=== PATIENT | female | born 1985 | race Caucasian/White ===

== ENCOUNTER → 2016-10-31 | Outpatient (CLI) | payer OTHER ==
--- NOTE | 2016-10-31 11:51 | US ---
October 31, [address] Mckeon, Thank you for requesting consultation and a ultrasound to evaluate the anatomy for your patient, Mrs. Mccarthy. As you know, Chayito is a 31 year old G 2, P 1001 with a shaikh preg kena dating 20 w 0 d; DONI of 03/20/17 by prior ultrasound. Aneuploidy screening was performed. She had reassuring NIPT results. ULTRASOUND Number of fetuses: 1 Placental location: Anterior; no evidence of previa Placental cord insertion: Intraplacental presentation: Breech Cervix: 4.4 cm viewed transabdominally Maximum Vertical Pocket: 4.7 cm The adnexa were evaluated. No pathology was seen. Right ovary is visualized and seen as normal. It measures 2.3 x 1.0 x 2.8 cm. Left ovary is visualized and seen as normal. It measures 2.1 x 1.7 x 2.9 cm. MEASUREMENTS: Biparietal diameter: 47 mm 20 weeks, 1 days Head circumference: 176 mm 20 weeks, 1 days Abdominal circumference: 153 mm 20 weeks, 4 days Femur length: 32 mm 20 weeks, 1 days Humerus length: 32 mm 20 weeks, 4 days Transcerebellar diameter: 21 mm 19 weeks, 6 days Average ultrasound age: 20 weeks, 2 days Estimated weight: 342 gm weight percentile: 60% ANATOMY Supratentorial brain: Normal including views of the falx, cavum septum pellucidum and choroids Lateral Ventricle: Normal, measuring 4.3 mm Posterior fossa: Normal including the cerebellum and cisterna magna Spine: Normal Nuchal fold: 4.0 mm normal Face: Normal views of the lip and nose area Profile: Normal Palate: Normal appearance of the alveolar ridge Heart: Four Chamber View: Normal including the intraventricular Septum LVOT: Normal RVOT: Normal 3VV: Normal Tracheal View: Normal Aortic Arch: Seen Ductal Arch: Seen SVC/IVC: Seen Heart Rate 139 bpm Diaphragm: Normal appearance without overt abnormality detected Stomach: Normal Umbilical cord insertion: Normal Right kidney: Normal Left kidney: Normal Bladder: Normal Number of cord vessels: Three Upper extremities: Normal Lower extremities: Normal Gender: Undisclosed; "Normal" IMPRESSION: 1. Intrauterine at 20 w 0 d, ultrasound is consistent with her established DONI of 03/20/17 . 2. Normal anatomical survey. 3. Cervical length is normal at 4.4 cm without evidence of insufficiency. RECOMMENDATIONS: I was pleased to review today's ultrasound with your patient and her spouse. I reassured them that t he baby is growing appropriately with normal amniotic fluid volume. Our detailed review of the anatomy did not reveal any overt abnormalities. Future ultrasound and consultation is left to your clinical discretion. Future follow up is left to your clinical discretion. Thank you for allowing us the opportunity to evaluate your patient. Should you have any further ques tions or concerns please do not hesitate to contact me. Low risk; no E&M. Agnieszka Booker MD [facility] Maternal Medicine Diagnosis Department of Obstetrics & Gynecology [facility]
--- NOTE | 2016-10-31 19:40 | US ---
Complete Detailed Obstetrical Sonography Clinical History: 31-year-old female presenting for anatomic survey and biometry. Technique: A curvilinear 5 MHz transducer was used to sonographically evaluate the fetus and the plac enta. M-mode Doppler was used. Dr. Agnieszka Booker was present. Comparison Study: First trimester obstetrical sonography, dated September 08, 2016. LMP: June 13, 2016, indicating an age of 20 weeks 0 days, and an estimated date of delivery of J une 2016. Findings: Again, there is a single viable intrauterine gestation, which is currently breech in prese ntation. The placenta is anteriorly-situated, with no evidence of previa. The maternal cervical lengt h is 4.4 cm, measured transabdominally. There is a three-vessel cord with a normal intraplacental cor d insertion. The amniotic fluid volume is appropriate with a maximal vertical pocket of 4.7 cm. The f etal heart rate is 139 bpm. The maternal ovaries are identified, and appear normal, with the right ov milena measuring 2.3 x 1.0 x 2.8 cm, and the maternal left ovary measuring 2.1 x 1.7 x 2.9 cm. The anatomic survey reveals a normal appearance to the supra- and infratentorial structures. Th e lateral ventricular diameter is 4.3 mm, and the nuchal fold is 4.0 mm. The spine is evaluated in sa gittal and transverse planes, and appears normal. The nasolabial labial anatomy, sagittal facia l profile, and the alveolar ridge appear normal. There is a 4-chambered heart with interventricular s eptum, right and left ventricular outflow tracts, three-vessel tracheal view, aortic and ductal arch and inflow tracts. The diaphragm is intact. The stomach, right and left kidneys, urinary bladder, and the upper and lower extremities are identified. biometry is as follows: The biparietal diameter is 47 mm, corresponding to an age of 20 weeks 1 day +/- 1 week 6 days, which is at the 54th percentile. The head circumference is 176 mm, corresponding to an age of 20 weeks 1 day +/- 1 week 4 days, which is at the 47th percentile. The abdominal circumference is 152 mm, corresponding to an age of 20 weeks 4 days +/- 2 weeks 1 day, which is at the 60th percentile. The femur length is 32 mm, corresponding to an age of 20 weeks 1 day +/- 1 week 6 days, which is at t he 44th percentile. The humeral length is 32 mm, corresponding to an age of 20 weeks 4 days, and the transcerebellar diam eter is 21 mm corresponding to an age of 19 weeks 6 days +/- 1 week 0 days. The composite gestational age based upon the above parameters is 20 weeks 2 days. The estimated weight is 342 grams +/- 50 grams, which is 12 ounces +/- 2 ounces, which is at e 60th percentile. The head circumference to abdominal circumference ratio is normal, measuring 1.16. The femur length t o biparietal diameter ratio is 69%, and the femur length to abdominal circumference ratio is 21%. Impression: There is a single viable intrauterine gestation with no overt structural anomaly hernandez ving biometry concordant with menstrual dating and demonstrating appropriate interval growth since 2015. Please also refer to Dr. Booker's separate assessments and specific recommendations for follow up.
== END ==
LOC: FIMAGING 10:38
PROVIDERS: ATTEND Obstetrics & Gynecology
DX: Z34.92 Encounter for supervision of normal pregnancy, unspecified, second trimester (principal); Z3A.20 20 weeks gestation of pregnancy

== ENCOUNTER → 2017-01-11 | Outpatient (CLI) | payer OTHER | LOC: FIMAGING 08:25 | PROVIDERS: ATTEND Obstetrics & Gynecology | DX: O99.89 Other specified diseases and conditions complicating pregnancy, childbirth and the puerperium (principal); R10.9 Unspecified abdominal pain; S39.011A Strain of muscle, fascia and tendon of abdomen, initial encounter; S76.211A Strain of adductor muscle, fascia and tendon of right thigh, initial encounter; M53.3 Sacrococcygeal disorders, not elsewhere classified; Z3A.30 30 weeks gestation of pregnancy ==

== ENCOUNTER → 2017-01-24 | Outpatient (CLI) | payer OTHER | LOC: FIMAGING 14:23 | PROVIDERS: ATTEND Obstetrics & Gynecology | DX: Z36 Encounter for antenatal screening of mother (principal); Z3A.32 32 weeks gestation of pregnancy; O99.89 Other specified diseases and conditions complicating pregnancy, childbirth and the puerperium; M86.18 Other acute osteomyelitis, other site; S39.011A Strain of muscle, fascia and tendon of abdomen, initial encounter ==

== ENCOUNTER → 2017-02-16 | Outpatient (CLI) | payer OTHER | LOC: FIMAGING 08:45 | PROVIDERS: ATTEND Obstetrics & Gynecology | DX: Z34.03 Encounter for supervision of normal first pregnancy, third trimester (principal); Z3A.35 35 weeks gestation of pregnancy ==

== ENCOUNTER → 2017-03-02 | Outpatient (CLI) | payer OTHER | LOC: FIMAGING 14:34 | PROVIDERS: ATTEND Obstetrics & Gynecology | DX: Z34.83 Encounter for supervision of other normal pregnancy, third trimester (principal); Z3A.37 37 weeks gestation of pregnancy ==

== ENCOUNTER 2017-03-13 17:00 | Inpatient (IN) | payer OTHER ==
[2017-03-13] MEDS ORDERED: OLIVE OIL 118 ML BTL MISC PRN (21:24)
[2017-03-13] MEDS ORDERED: LR 1,000 ML IV PRN (21:24)
[2017-03-13] MEDS ORDERED: TERBUTALINE SULFATE 1 MG/ML VIAL IV PRN (21:24)
[2017-03-13] MEDS ORDERED: EPSOM SALT 454 GM TP PRN (21:24)
[2017-03-13] MEDS ORDERED: OXYTOCIN/RINGERS LACTATE 1,000 ML IV PRN (21:24)
[2017-03-13] MEDS ORDERED: CALCIUM CARBONATE 500 MG CHEWABLE TAB PO PRN (21:30)
[2017-03-13] MEDS ORDERED: diphenhydrAMINE 25 MG CAP PO PRN (21:30)
[2017-03-13] MEDS ORDERED: ACETAMINOPHEN 325 MG TAB PO PRN (21:31)
[2017-03-13 21:40] LABS: % IMMATURE GRANULYOCYTES 0.4 % (0.0-1.1); ABSOLUTE IMMATURE GRANULOCYTES 0.03 10^3/uL (0.00-0.10); ADD DIFF? NO; ADD MORPH? NO; ADD SCAN? NO; ATYPICAL LYMPHOCYTE FLAG 0 (0-99); FRAGMENT RBC FLAG 0 (0-99); HEMATOCRIT 36.5 % (38.0-47.0); HEMOGLOBIN 12.8 g/dL (12.6-16.3); LEFT SHIFT FLG 0 (0-99); LIPEMIA HEMOLYSIS FLAG 90 (0-99); MEAN CELL HEMOGLOBIN 32.6 pg (27.9-34.1); MEAN CELL HEMOGLOBIN CONCENTR. 35.1 g/dL (32.4-36.7); MEAN CELL VOLUME 92.9 fL (81.5-99.8); PLATELET CLUMPS FLAG 20 (0-99); PLATELET COUNT 198 10^3/uL (150-400); RED BLOOD CELL COUNT 3.93 10^6/uL (4.18-5.33); RED CELL DISTRIBUTION WIDTH 12.9 % (11.5-15.2)
[2017-03-14] MEDS ORDERED: LIDOCAINE 1% 300 MG/30 ML SDV ONE (04:48)
[2017-03-14] MEDS ORDERED: AMMONIA AROMATIC 1 EACH AMP IH ONE (04:49)
[2017-03-14] MEDS ORDERED: MISOPROSTOL 200 MCG TAB ONE (04:49)
[2017-03-14] MEDS ORDERED: OLIVE OIL 118 ML BTL ONE (04:49)
[2017-03-14] MEDS ORDERED: OXYTOCIN 10 UNIT/ML VIAL ONE (04:49)
[2017-03-14] MEDS ORDERED: TERBUTALINE SULFATE 1 MG/ML VIAL ONE (04:49)
[2017-03-14] MEDS ORDERED: OXYTOCIN/LR *STANDARD DOSE PROTOCOL IV SCH (05:00)
--- NOTE | 2017-03-14 07:58 | OBPROG ---
OBG Labor Progress Note Assessment/Plan: Assessment: 31 y/o at 39+1 weeks EGA admitted for IOL for severe pelvic floor pain - Plan: 1) status reassuring 2) Labor: Desire AROM after CAS placed, will continue pitocin, and anesthesia will place CAS after he finishes a surgery 3) Pain: Consulting anesthesia for CAS 4) GBS neg 03/14/17 07:57 Subjective: No complaints, eventually wants CAS, ctx not too painful now. [place] bulb out last night. Objective: 03/13/17 21:00 Patient ABO/Rh B POSITIVE 03/13/17 21:00 - SVE Dilation (cm): 4 Effacement (%): 50 Station: -2 Wallace Current Contraction Pattern: Irregular FHR (bpm): 125 FHR Pattern Variability: Moderate FHR Category: 1 Oxytocin Orders Assessment - Pre-Induction/Augmentation Assessment Gestational Age: 39 week(s) and 0 day(s) ICD10 Worksheet Patient Problems: Problems Problem Status Onset Labor established Acute
[2017-03-14] MEDS ORDERED: fentaNYL 2MCG/ML/BUP 0.1% RTU 100 ML BAG EP ONE (08:55)
[2017-03-14] MEDS ORDERED: PHENYLEPHRINE HCL 100 MCG/ML SYR ONE (08:55)
[2017-03-14] MEDS ORDERED: BUPIVACAINE 0.25% 30 ML SDV ONE (08:55)
[2017-03-14] MEDS ORDERED: fentaNYL 100 MCG/2 ML INJ ONE (08:56)
--- NOTE | 2017-03-14 10:22 | PREANESOB ---
Obstetric Pre-Anesthesia Info - General Info Proposed Procedure: Labor and delivery with pitocin. : 2 Para: 1 WBD: 39 - Info Status: Full Term Monitors: External FHR Baseline (bpm): 125 FHR Pattern: Reassuring - Labor Status Cervical Dilation per last OB SVE: 4 Station per last OB SVE: -2 Pitocin: In Use Indications for Labor Analgesia: Induction of Labor, Pain Control Labor Epidural: Proposed Anesthesia ROS: Prior labor epidural and surgery with general anesthesia. Very mild asthma. Allergies/Adverse Reactions: Allergy/AdvReac Type Severity Reaction Status Date / Time No Known Allergies Allergy Unverified 10/16/15 18:38 Home Medications: Medication Instructions Recorded Hydrocodone/APAP 5/325 [[place] 1 - 2 tab PO Q4 PRN #30 tab 10/19/15 5/325 (*)] Ibuprofen [Motrin (*)] 600 mg PO Q6 PRN #30 tab 10/19/15 Visit Medications: Generic Name Dose Route Start Last Admin Trade Name Freq PRN Reason Stop Dose Admin Acetaminophen 650 mg 03/13/17 21:31 Tylenol PO 09/09/17 21:30 Q4 PRN Pain, Mild/Fever, Can Take PO Calcium Carbonate 1,000 mg 03/13/17 21:30 Tums PO 09/09/17 21:29 Q4 PRN HEARTBURN Diphenhydramine HCl 25 mg 03/13/17 21:30 03/13/17 22:01 Benadryl PO 09/09/17 21:29 25 mg HS PRN Administration INSOMNIA Lactated Ringer's 1,000 mls @ 0 mls/hr 03/13/17 21:24 03/14/17 05:15 Lr IV 09/09/17 21:23 1,000 mls PRN PRN Administration SEE PROTOCOL CONDITIONS Protocol Per Protocol Oxytocin/Lactated Ringer's 1,000 mls @ 150 mls/hr 03/13/17 21:24 Pitocin 20 Units/Lr (Premix) IV PRN PRN Post- bleeding Oxytocin/Lactated Ringer's 500 mls @ 0 mls/hr 03/14/17 05:00 03/14/17 05:20 Pitocin 30 Units/Lr (Premix) IV 09/10/17 04:59 500 mls CONT KATHYA Administration Protocol Per Protocol Ibuprofen 600 mg 03/13/17 21:24 Motrin PO 09/09/17 21:23 Q6HRS PRN post , inflammation Magnesium Sulfate 454 gm 03/13/17 21:24 Epsom Salt TP 09/09/17 21:23 PRN PRN perineal discomfort [place] Oil 118 ml 03/13/17 21:24 Sweet Oil MISC 09/09/17 21:23 ONCE PRN preneal massage Terbutaline Sulfate 0.25 mg 03/13/17 21:24 Brethine IV 09/09/17 21:23 ONCE PRN Tachysystole Discontinued Medications Generic Name Dose Route Start Last Admin Trade Name Freq PRN Reason Stop Dose Admin Ammonia (Aromatic Spirit) Confirm 03/14/17 04:49 Ammonia Aromatic Administered 03/14/17 04:50 Dose 1 each IH .STK-MED ONE Bupivacaine HCl Confirm 03/14/17 08:55 Sensorcaine 0.25% Sdv Administered 03/14/17 08:56 Dose 30 ml .ROUTE .STK-MED ONE Fentanyl Confirm 03/14/17 08:56 Sublimaze Administered 03/14/17 08:57 Dose 100 mcg .ROUTE .STK-MED ONE Fentanyl/Bupivacaine HCl Confirm 03/14/17 08:55 Fentanyl/Bupivacaine/Ns 2 Mcg/Ml 0.1% (Premix Administered 03/14/17 08:56 Dose 100 ml EP .STK-MED ONE Lidocaine HCl Confirm 03/14/17 04:48 Lidocaine Hcl 1% Administered 03/14/17 04:49 Dose 300 mg .ROUTE .STK-MED ONE Misoprostol Confirm 03/14/17 04:49 Cytotec Administered 03/14/17 04:50 Dose 1,000 mcg .ROUTE .STK-MED ONE [place] Oil Confirm 03/14/17 04:49 Sweet Oil Administered 03/14/17 04:50 Dose 118 ml .ROUTE .STK-MED ONE Oxytocin Confirm 03/14/17 04:49 Pitocin Administered 03/14/17 04:50 Dose 40 unit .ROUTE .STK-MED ONE Phenylephrine HCl Confirm 03/14/17 08:55 Neosynephrine Administered 03/14/17 08:56 Dose 1,000 mcg .ROUTE .STK-MED ONE Terbutaline Sulfate Confirm 03/14/17 04:49 Brethine Administered 03/14/17 04:50 Dose 1 mg .ROUTE .STK-MED ONE - Anesthesia History Response to Local Anesthetics: Normal Anesthesia & Operative History: No Prior Problems Family Anesthesia History: Negative - Social History Substance Use/Abuse: Denies - Focused Exam Blood Pressure: 109/61 Heart Rate: 73 Height/Weight (Nursing): Height 165.1 cm Weight 68.039 kg Physical Exam: Within normal limits. No wheezes. ASA Status: II Labs: 03/13/17 21:00 Patient ABO/Rh B POSITIVE 03/13/17 21:00 - Plan Anesthetic Plan: CSE Consent Signed and on Chart: Yes Patient/Guardian Understands and Agrees to Plan: Yes
[2017-03-14] MEDS ORDERED: PHENYLEPHRINE HCL 100 MCG/ML SYR IVP PRN (10:24)
[2017-03-14] MEDS ORDERED: ONDANSETRON 4 MG/2 ML VIAL IVP PRN (10:24)
--- NOTE | 2017-03-14 10:26 | POSTANESTH ---
Post Anesthetic Evaluation Cardiovascular Status: Normal, Stable Respiratory Status: Normal, Stable, Similar to Pre-op Cond. Level of Consciousness/Mental Status: Can Participate in Eval, Alert and Oriented (Tolerated CSE well, stable, comfortable.) Pain Control: Adequate, Prn Tx Ordered Nausea/Vomiting Control: Adequate, Prn Tx Ordered Complications Possibly Related to Anesthesia: None Noted
[2017-03-14] MEDS ORDERED: LR 500 ML IV SCH (10:30)
[2017-03-14] MEDS ORDERED: fentaNYL 2MCG/ML/BUP 0.1% RTU 100 ML EP SCH (10:30)
[2017-03-14] MEDS ORDERED: SIMETHICONE 80 MG TAB CHEW PO PRN (13:02)
[2017-03-14] MEDS ORDERED: HYDROCORTISONE 0.5% CREAM TP PRN (13:02)
--- NOTE | 2017-03-14 13:06 | OBDEL ---
Info Type: Vaginal GBS+: No Indications for Delivery: Elective (IOL for severe hip/ pelvic pain and abd tearing.) Vaginal Delivery - Labor and Delivery Onset of Contractions Date: 03/14/17 Onset of Contractions Time: 06:00 Onset of Contractions Type: Induced Rupture of Membranes Date: 03/14/17 Rupture of Membranes Time: 10:30 Rupture of Membranes Type: Spontaneous Amniotic Fluid Color: Clear Dilation Complete Date: 03/14/17 Dilation Complete Time: 12:30 Placenta Delivery Date: 03/14/17 Placenta Delivery Time: 12:53 Total Hours of Labor: 6 Vaginal Sponge Count Correct: Yes (10) Vaginal Needle Count Correct: Yes (2) Vaginal Sweep Performed: Yes EBL: 150 Delivery Events: Nuchal Cord - Medications Labor Augmentation/Induction Methods Used: Pitocin Labor Augmentation/Induction Indication: Other (Specify) (pelvic/ hip pain) [place] Data Wallace Delivery Date: 03/14/17 Delivery Time: 12:49 DONI: 03/20/17 Gestational Age: 39 week(s) and 1 day(s) Sex of Infant: Female Score (1 Min): 8 Score (5 Min): 9 ICD10 Worksheet Patient Problems: Problems Problem Status Onset Delivery normal Acute Labor established Acute - ICD10 Problem Qualifiers (1) Delivery normal
[2017-03-14] MEDS: IBUPROFEN 600 MG TAB PO PRN ×2 (13:45→19:47)
[2017-03-14] MEDS: HYDROCODONE/APAP 5/325 TAB PO PRN ×2 (16:31→21:38)
[2017-03-14] MEDS: DOCUSATE SODIUM 100 MG CAP PO PRN (19:47)
[2017-03-15] MEDS: IBUPROFEN 600 MG TAB PO PRN ×4 (01:13→18:59)
[2017-03-15] MEDS: HYDROCODONE/APAP 5/325 TAB PO PRN ×2 (01:47→20:04)
--- NOTE | 2017-03-15 08:20 | OBPP ---
Progress Note Assessment/Plan: Assessment: PPD#1 s/p , 39w1d Recovering well Rh pos, Rub imm Plan: Routine pp care 03/15/17 08:19 Subjective: Feels great. Baby is latching. Minor cramps. Hoping hip/back pain will feel a lot better today when ambulating. Lochia appropriate.Swelling of perineum going down, minimal tenderness Objective: 03/15/17 02:20 Patient ABO/Rh B POSITIVE 03/13/17 21:00 Temp Pulse Resp BP Pulse Ox 36.8 C 76 17 113/83 H 95 03/14/17 20:00 03/14/17 20:00 03/14/17 20:00 03/14/17 20:00 03/14/17 20:00 Gen: NAD Resp: unlabored CV: RRR Breasts: soft Abd: soft, nontender, uterus firm below U Ext: no edema
[2017-03-15] MEDS: DOCUSATE SODIUM 100 MG CAP PO PRN (20:04)
[2017-03-16] MEDS: HYDROCODONE/APAP 5/325 TAB PO PRN ×2 (01:26→07:25)
[2017-03-16] MEDS: IBUPROFEN 600 MG TAB PO PRN ×3 (01:26→14:44)
--- NOTE | 2017-03-16 13:07 | SOAPPROG ---
SOAP Progress Note Assessment/Plan: Assessment: 31 yo P2 s/p , ppd 2, doing well. Plan: 03/16/17 13:06 Routine pp care, home today. Subjective: 31 yo P2 s/p , ppd 2, doing well. Objective: Vital Signs Temp Pulse Resp BP Pulse Ox 36.9 C 70 19 134/97 H 94 03/16/17 09:01 03/16/17 09:01 03/16/17 09:01 03/16/17 09:01 03/16/17 09:01 Laboratory Results 03/15/17 02:20 03/15/17 03/16/17 03/17/17 05:59 05:59 05:59 Output Total 200 Balance -200 Physical Exam - Physical Exam General Appearance: no apparent distress Respiratory: lungs clear Cardiac/Chest: regular rate, rhythm Abdomen: non-tender Skin: warm/dry Extremities: non-tender ICD10 Worksheet Patient Problems: Problems Problem Status Onset Delivery normal Acute Labor established Acute
[2017-03-16 14:17] LABS: % IMMATURE GRANULYOCYTES 0.3 % (0.0-1.1); ABSOLUTE IMMATURE GRANULOCYTES 0.03 10^3/uL (0.00-0.10); ADD DIFF? NO; ADD MORPH? NO; ADD SCAN? NO; ATYPICAL LYMPHOCYTE FLAG 10 (0-99); FRAGMENT RBC FLAG 0 (0-99); HEMATOCRIT 39.8 % (38.0-47.0); HEMOGLOBIN 13.6 g/dL (12.6-16.3); LEFT SHIFT FLG 0 (0-99); LIPEMIA HEMOLYSIS FLAG 90 (0-99); MEAN CELL HEMOGLOBIN 32.4 pg (27.9-34.1); MEAN CELL HEMOGLOBIN CONCENTR. 34.2 g/dL (32.4-36.7); MEAN CELL VOLUME 94.8 fL (81.5-99.8); MEAN PLATELET VOLUME 10.8 fL (8.7-11.7); PLATELET CLUMPS FLAG 0 (0-99); PLATELET COUNT 194 10^3/uL (150-400)
[2017-03-16 14:19] LABS: ALANINE AMINOTRANSFERASE 28 IU/L (9-52); ASPARTATE AMINOTRANSFERASE 27 IU/L (14-46); BILIRUBIN,TOTAL 0.2 mg/dL (0.1-1.4); BILIRUBIN-CONJUGATED 0.1 mg/dL (0.0-0.5); BILIRUBIN-UNCONJUGATED 0.1 mg/dL (0.0-1.1); CREATININE 0.6 mg/dL (0.6-1.0); GLOMERULAR FILTRATION RATE > 60; LACTATE DEHYDROGENASE 713 IU/L (313-618)
[2017-03-16 17:07] VITALS: BP 101/65; PULSE 55; RESP 17; TEMP 97.6; O2SAT 93
== END 2017-03-16 17:00 | disposition home or self-care (01) | DRG 775 ==
LOC: FLD 17:00 → FOB 03-14 17:21
PROVIDERS: ADMIT Obstetrics & Gynecology; ATTEND Obstetrics & Gynecology
PROC: 10E0XZZ Delivery of Products of Conception, External Approach (ICD-10-PCS; principal; 2017-03-14)
DX: O80 Encounter for full-term uncomplicated delivery (principal); Z3A.39 39 weeks gestation of pregnancy; Z37.0 Single live birth
CPT/HCPCS: J2370; J2590; J3010; J3105

== ENCOUNTER 2018-04-23 18:01 | Inpatient (IN) | payer OTHER ==
--- NOTE | 2018-04-23 18:29 | EDPHY ---
HPI/HX/ROS/PE/MDM Narrative: CHIEF COMPLAINT: Pneumothorax HISTORY OF PRESENT ILLNESS: The patient is a 32 y/o female with a history of asthma arriving with her friend for treatment of a right-sided pneumothorax. She first noticed sudden onset shortness of breath last Monday, 8 days ago, while driving home from a wedding in [place]. She initially attributed symptoms to anxiety. On Monday, she took her son to the jewel bearing maker and mentioned to him she had some shortness of breath, but he did not hear anything abnormal on auscultation. On Monday, she noticed significant exertional dyspnea while walking upstairs or other low-effort activities around the house. She tried using her albuterol and Advair without any alleviation. She went to her PCP and was treated with steroids; no imaging was performed at that time. She continued to have symptoms and developed a cough and went back to her PCP on Monday and was prescribed codeine cough syrup. She felt her dyspnea had improved slightly since steroid treatment and felt improved when lying down. She still felt short of breath today and returned for reevaluation. A chest x- ray showed a right-sided pneumothorax and she was sent to the ED for treatment. No obvious precipitating event or trauma. No fever, chills, chest pain, palpitations, vomiting, diarrhea, urinary complaints, headache, lightheadedness. REVIEW OF SYSTEMS: Aside from elements discussed in the HPI, a comprehensive 10-point review of systems was reviewed and is negative. PAST MEDICAL HISTORY: Asthma - Advair and albuterol; recently on Prozac and Lamictal but stopped last week due to concern for allergic reaction; IUD SOCIAL HISTORY: with two children. Friend at bedside. VITAL SIGNS: Reviewed by me GENERAL: Well-developed, well-nourished, seems slightly short of breath. 94% on room air. HEENT: Atraumatic. Eyes: No icterus, no injection. Mouth: moist mucous membranes. No erythema or lesions. Neck: supple with no adenopathy. LUNGS: Diminished on right side with absent breath sounds in right lower lobes. Right upper lobe and entire left side clear to auscultation, no wheezes, rhonchi or rales. CARDIAC: Regular rate and rhythm, no rubs, murmurs or gallops. ABDOMEN: Soft, nontender, nondistended, bowel sounds normal. BACK: No CVA tenderness. EXTREMITIES: No trauma. No edema. Range of motion is normal throughout. NEURO: Alert and oriented, grossly nonfocal. SKIN: Warm and dry, no rash. PSYCHIATRIC: Normal mentation, no agitation. Portions of this note were transcribed by a certified medical coder. I personally performed a history, physical exam, medical decision making, and confirmed accuracy of information the transcribed note. ED Course: This is a well-appearing 32 y/o female with a history of asthma who presents with a confirmed 100% right-sided pneumothorax following 8 days of dyspnea. Outpatient chest x-ray reviewed by myself confirms pneumothorax. She is hemodynamically stable on exam with a normal room air saturation. Surgeon, Dr. Garcia, was contacted for consult and will assess patient in the ED. 1830: Dr. Garcia at bedside assessing patient. Plan for chest tube. Chest tube performed successfully. Patient will be admitted to Dr. Garcia. MDM: Differential diagnosis for the patient's shortness of breath was considered including but not limited to pneumothorax, tension pneumothorax, asthma exacerbation, viral infection. - Data Points Imaging Results: Imaging Impressions Chest X-Ray 04/23/18 18:57 Impression: Improved right pneumothorax post chest tube placement. Imaging: I viewed and interpreted images myself Laboratory Results: 04/23/18 18:25 Beta HCG, Qual NEGATIVE Medications Given: Fluoxetine HCl (Prozac) 20 mg PO DAILY [facility] Stop: 10/20/18 19:59 Last Admin: 04/23/18 20:45 Dose: Not Given Cefazolin Sodium/Dextrose (Ancef 1 Gm (Premix)) 50 mls @ 200 mls/hr IV Q8 KATHYA PRN Reason: Protocol Stop: 04/24/18 14:14 Last Admin: 04/23/18 21:17 Dose: 50 mls Potassium Chloride/Dextrose/Sod Cl (D5w 1/2 Ns W/ 20 Kcl/L) 1,000 mls @ 75 mls/ hr IV CONT [facility] Stop: 10/20/18 19:44 Last Admin: 04/23/18 21:17 Dose: 1,000 mls Ketorolac Tromethamine (Toradol) 15 mg IVP Q6HRS KATHYA Stop: 04/29/18 00:00 Last Admin: 04/23/18 23:09 Dose: 15 mg Lamotrigine (Lamictal) 200 mg PO DAILY [facility] Stop: 10/20/18 19:59 Last Admin: 04/23/18 20:45 Dose: Not Given Oxycodone/Acetaminophen (Percocet 5/325) 1 - 2 tab PO Q4 PRN PRN Reason: Pain, Severe Able to Take PO Stop: 05/03/18 19:40 Last Admin: 04/23/18 20:44 Dose: 1 tab Fluticasone/Salmeterol (Advair) 1 puffs IH BID [facility] Stop: 10/20/18 20:59 Last Admin: 04/23/18 21:19 Dose: 1 puffs Discontinued Medications Fentanyl (Sublimaze) 50 mcg IVP EDNOW ONE Stop: 04/23/18 19:01 Last Admin: 04/23/18 18:50 Dose: 50 mcg Fentanyl (Sublimaze) 50 mcg IVP EDNOW ONE Stop: 04/23/18 19:01 Last Admin: 04/23/18 18:53 Dose: 50 mcg Fentanyl (Sublimaze) 50 mcg IVP EDNOW ONE Stop: 04/23/18 19:14 Last Admin: 04/23/18 19:13 Dose: 50 mcg Ketorolac Tromethamine (Toradol) 15 mg IVP EDNOW ONE Stop: 04/23/18 19:06 Last Admin: 04/23/18 19:05 Dose: 15 mg Lorazepam (Ativan Injection) 1 mg IVP EDNOW ONE Stop: 04/23/18 19:11 Last Admin: 04/23/18 19:10 Dose: 1 mg Midazolam HCl (Versed) 2 mg IVP EDNOW ONE Stop: 04/23/18 19:01 Last Admin: 04/23/18 18:50 Dose: 2 mg General Initial Vital Signs: Initial Vital Signs Temperature (C) 36.7 C 04/23/18 18:06 Heart Rate 83 04/23/18 18:06 Respiratory Rate 16 04/23/18 18:06 O2 Sat (%) 94 04/23/18 18:06 O2 Delivery Mode [Post Nasal Cannula Procedure 1st] O2 Delivery Mode [Procedural Nasal Cannula 1st] O2 Delivery Mode [.Immediate Nasal Cannula Pre-Procedure] O2 Delivery Mode Nasal Cannula O2 (L/minute) [Post Procedure 4 1st] O2 (L/minute) [Procedural 1st] 4 O2 (L/minute) [.Immediate Pre- 4 Procedure] O2 (L/minute) 2 Allergies/Adverse Reactions: No Known Allergies Allergy (Verified 04/23/18 18:04) Home Medications: Medication Instructions Recorded Albuterol [Proventil Inhaler HFA 1 - 2 puffs IH Q4H PRN 04/23/18 (*)] Butalb/Acetaminophen/Caffeine 1 each PO DAILY PRN 04/23/18 [Mqbelf-[id number]-[id number] 50-325-40] FLUoxetine [Prozac 20 MG (*)] 20 mg PO DAILY 04/23/18 Fluticasone/Salmeter 250/50Mcg 1 puffs IH BID 04/23/18 [Advair 250/50 (*)] Loratadine/Pseudoephedrine 1 each PO DAILY PRN 04/23/18 [Claritin-D 24 Hour Tablet] lamoTRIgine [Lamictal] 200 mg PO DAILY 04/23/18 Departure - Departure Disposition: [facility] Acute Clinical Impression: Spontaneous pneumothorax Condition: Fair Report Scribed for: Penny Egan Report Scribed by: Rosa Saleem Date of Report: 04/23/18 Time of Report: 18:29
[2018-04-23] MEDS ORDERED: MIDAZOLAM 2 MG/2 ML VIAL ONE (18:41)
[2018-04-23] MEDS ORDERED: fentaNYL 100 MCG/2 ML INJ ONE ×2 (18:41→18:55)
[2018-04-23] MEDS ORDERED: fentaNYL 100 MCG/2 ML INJ IVP ONE ×3 (19:00→19:13)
[2018-04-23] MEDS ORDERED: MIDAZOLAM 2 MG/2 ML VIAL IVP ONE (19:00)
[2018-04-23] MEDS ORDERED: KETOROLAC 15 MG/1 ML SDV ONE (19:02)
[2018-04-23] MEDS ORDERED: KETOROLAC 15 MG/1 ML SDV IVP ONE (19:05)
[2018-04-23] MEDS ORDERED: LORazepam 2 MG/ML INJ IVP ONE (19:10)
[2018-04-23] MEDS ORDERED: LORazepam 2 MG/ML INJ ONE (19:11)
--- NOTE | 2018-04-23 19:37 | POSTOPPROG ---
Post Op Note Date of Operation: 04/23/18 Surgeon: Nathaniel Garcia Anesthesia: IV Sedation, Local (Specify) Pre-op Diagnosis: tension right pneumo Post-op Diagnosis: same Indication: sob Procedure: rt tube thoracostomy Findings: full reexpansion Inf/Abcess present in the surg proc area at time of surgery?: No Depth: Organ Space EBL: Minimal Complications: 0 Drains: Constavac
[2018-04-23] MEDS ORDERED: HYDROmorphONE/DILAUDID 1 MG/ML INJ IVP PRN (19:41)
[2018-04-23] MEDS ORDERED: ONDANSETRON 4 MG/2 ML VIAL IVP PRN (19:41)
[2018-04-23] MEDS ORDERED: ONDANSETRON DISINTEGRATING 4 MG TAB PO PRN (19:41)
[2018-04-23] MEDS ORDERED: LORazepam 2 MG/ML INJ IVP PRN (19:43)
[2018-04-23] MEDS ORDERED: ALBUTEROL 60 PUFFS/8 GM MDI IH PRN (19:46)
[2018-04-23] MEDS ORDERED: Loratadine/Pseudoephedrine [Claritin-D 24 Hour Tablet] PO PRN (19:46)
[2018-04-23] MEDS ORDERED: ACET/CAFFEINE/BUTA FIORICET 1 EACH TAB PO PRN (19:46)
[2018-04-23] MEDS: OXYCODONE/APAP 5/325 TAB PO PRN (20:44)
[2018-04-23] MEDS: lamoTRIgine 100 MG TAB PO SCH (20:45)
[2018-04-23] MEDS: FLUoxetine 20 MG CAP PO SCH (20:45)
[2018-04-23] MEDS: D5W 1/2 NS W/ 20 KCl/L 1,000 ML IV SCH (21:17)
[2018-04-23] MEDS: FLUTICASONE/SALMETER 250/50MCG DISKUS IH SCH (21:19)
[2018-04-23] MEDS: KETOROLAC 15 MG/1 ML SDV IVP SCH (23:09)
[2018-04-24] MEDS: OXYCODONE/APAP 5/325 TAB PO PRN ×5 (01:56→22:15)
[2018-04-24] MEDS: KETOROLAC 15 MG/1 ML SDV IVP SCH ×3 (05:28→18:24)
[2018-04-24] MEDS: lamoTRIgine 100 MG TAB PO SCH (08:41)
[2018-04-24] MEDS: D5W 1/2 NS W/ 20 KCl/L 1,000 ML IV SCH ×2 (08:42→22:21)
[2018-04-24] MEDS: FLUoxetine 20 MG CAP PO SCH (08:42)
[2018-04-24] MEDS: FLUTICASONE/SALMETER 250/50MCG DISKUS IH SCH ×2 (09:45→20:18)
--- NOTE | 2018-04-24 10:20 | ASMTCASEMG ---
Living Arrangements What is your living Answers: With Spouse arrangement? Who do you live with? Type Of Residence What kind of residence do Answers: House you live in? Discharge Plan Comments Coordination Status Comments Notes: Pt is a 32 y/o female admitted for right collapsed lung. Pt will most likely d/c independent when medically stable. No therapies ordered at this time. CM available for changes. Plan: Independent Date Signed: 04/24/2018 10:19 AM Electronically Signed By:TESSY Montalvo
--- NOTE | 2018-04-24 11:49 | PDMN ---
Medical Necessity Medical necessity: Pt meets INPT criteria per MD and MCG M-500 Pneumothorax ( tension pneumothorax requiring chest tube placement).
[2018-04-25] MEDS: KETOROLAC 15 MG/1 ML SDV IVP SCH ×4 (01:21→17:20)
[2018-04-25] MEDS: OXYCODONE/APAP 5/325 TAB PO PRN ×4 (03:53→21:04)
[2018-04-25] MEDS: lamoTRIgine 100 MG TAB PO SCH ×2 (07:51→09:21)
[2018-04-25] MEDS: FLUoxetine 20 MG CAP PO SCH (07:51)
[2018-04-25] MEDS ORDERED: LIDOCAINE 4%/MENTHOL 1% PATCH TD ONE (10:00)
[2018-04-25] MEDS: FLUTICASONE/SALMETER 250/50MCG DISKUS IH SCH ×2 (10:25→20:32)
[2018-04-25] MEDS: LIDOCAINE 4%/MENTHOL 1% PATCH TD SCH (17:20)
[2018-04-25] MEDS: PATCH REMOVAL 1 EA PATCH TD SCH (21:05)
[2018-04-26] MEDS: KETOROLAC 15 MG/1 ML SDV IVP SCH ×5 (05:27→23:09)
--- NOTE | 2018-04-26 08:17 | SOAPPROG ---
SOAP Progress Note Assessment/Plan: Assessment: 32 y/o F s/p R spontaneous tension pneumo, s/p Chest tube placement on 04/23 S: Feels well. Denies pain and SOB O: Alert Afebrile RRR No increased WOB, Chest is CTA bilaterally, 14cc out from chest tube in last 24 hours. +Air leak Plan: Chest xray shows persistent airspace consolidation on R side, but no pneumothorax. Will get CT chest to further evaluate. Continue LWS for chest tube given +air leak. Hopefully to water seal tomorrow. 04/26/18 08:18 Objective: Vital Signs Temp Pulse Resp BP Pulse Ox 37.0 C 67 18 114/81 H 97 04/26/18 04:00 04/26/18 04:00 04/26/18 04:00 04/26/18 04:00 04/26/18 04:00 04/25/18 04/26/18 04/27/18 05:59 05:59 05:59 Intake Total 2248 1056 Output Total 89 14 Balance 2159 1042 ICD10 Worksheet Patient Problems: Problems Problem Status Onset Spontaneous pneumothorax Acute Delivery normal Acute Labor established Acute
[2018-04-26] MEDS: lamoTRIgine 100 MG TAB PO SCH (08:20)
[2018-04-26] MEDS: FLUoxetine 20 MG CAP PO SCH (08:20)
[2018-04-26] MEDS: LIDOCAINE 4%/MENTHOL 1% PATCH TD SCH (08:20)
[2018-04-26] MEDS: OXYCODONE/APAP 5/325 TAB PO PRN ×2 (08:24→15:21)
[2018-04-26] MEDS: FLUTICASONE/SALMETER 250/50MCG DISKUS IH SCH ×2 (08:56→20:21)
[2018-04-26] MEDS ORDERED: LIDOCAINE 4%/MENTHOL 1% PATCH TD SCH (09:00)
[2018-04-26] MEDS ORDERED: IOPAMIDOL (ISOVUE-300) 100 ML BTL ONE (10:24)
[2018-04-26] MEDS ORDERED: ALBUTEROL 60 PUFFS/8 GM MDI IH PRN (11:58)
[2018-04-26] MEDS: PATCH REMOVAL 1 EA PATCH TD SCH (22:10)
[2018-04-27] MEDS: OXYCODONE/APAP 5/325 TAB PO PRN ×3 (03:50→22:19)
[2018-04-27] MEDS: KETOROLAC 15 MG/1 ML SDV IVP SCH ×5 (05:43→23:44)
[2018-04-27] MEDS: FLUTICASONE/SALMETER 250/50MCG DISKUS IH SCH ×2 (08:25→21:21)
[2018-04-27] MEDS: FLUoxetine 20 MG CAP PO SCH (08:29)
[2018-04-27] MEDS: LIDOCAINE 4%/MENTHOL 1% PATCH TD SCH (08:29)
[2018-04-27] MEDS: lamoTRIgine 100 MG TAB PO SCH (08:29)
--- NOTE | 2018-04-27 09:47 | SOAPPROG ---
SOAP Progress Note Assessment/Plan: Assessment: 32 y/o F s/p R spontaneous tension pneumo, s/p Chest tube placement on 04/23 S: Feels well. Denies pain and SOB O: Alert Afebrile RRR No increased WOB, Chest is CTA bilaterally, 14cc out from chest tube in last 24 hours. +Air leak Plan: Chest xray shows persistent airspace consolidation on R side, but no pneumothorax. Will get CT chest to further evaluate. Continue LWS for chest tube given +air leak. Hopefully to water seal tomorrow. 04/26/18 08:18 04/27/18 09:45 Feels well. Denies SOB. Does endorse irritation from chest tube. + small air leak. Chest tube to water seal. Repeat chest xray later today. Hopefully pull tube tomorrow and d/c home so thereafter. Objective: Vital Signs Temp Pulse Resp BP Pulse Ox 36.6 C 76 16 109/63 98 04/27/18 07:36 04/27/18 07:36 04/27/18 07:36 04/27/18 07:36 04/27/18 07:36 04/26/18 04/27/18 04/28/18 05:59 05:59 05:59 Intake Total 105 550 Output Total 14 Balance 1042 550 ICD10 Worksheet Patient Problems: Problems Problem Status Onset Spontaneous pneumothorax Acute Delivery normal Acute Labor established Acute
--- NOTE | 2018-04-27 10:02 | SOAPPROG ---
SOAP Progress Note Assessment/Plan: Assessment: doing well/ ct with no true air leak and minimal drainage ct showed no definite blebs heent ok chest symmetric bs cor rr abd soft extrem full pulses and rom Plan:dc suction and fu cxr/ hopefully tubes out in am 04/27/18 09:59 Objective: Vital Signs Temp Pulse Resp BP Pulse Ox 36.6 C 76 16 109/63 98 04/27/18 07:36 04/27/18 07:36 04/27/18 07:36 04/27/18 07:36 04/27/18 07:36 04/26/18 04/27/18 04/28/18 05:59 05:59 05:59 Intake Total 1056 550 Output Total 14 Balance 1042 550 ICD10 Worksheet Patient Problems: Problems Problem Status Onset Spontaneous pneumothorax Acute Delivery normal Acute Labor established Acute
--- NOTE | 2018-04-27 12:34 | ASMTCMCOM ---
CM Note CM Note Notes: Chart reviewed.32 year old female admitted with pneumothorax of unknown cause. History includes asthma. Being followed by surgery after placement of chest tube. Hopefully tubes can be removed in am. No current needs identified, CM available should needs arise. Plan: Home independently when medically cleared for discharge. Date Signed: 04/27/2018 12:33 PM Electronically Signed By:Aurea Valladares RN
[2018-04-27] MEDS: IBUPROFEN 600 MG TAB PO PRN (19:43)
[2018-04-27] MEDS: PATCH REMOVAL 1 EA PATCH TD SCH (21:40)
[2018-04-28] MEDS: KETOROLAC 15 MG/1 ML SDV IVP SCH ×4 (05:48→23:51)
[2018-04-28] MEDS: IBUPROFEN 600 MG TAB PO PRN ×2 (06:25→14:54)
--- NOTE | 2018-04-28 08:11 | SOAPPROG ---
SOAP Progress Note Assessment/Plan: Assessment: doing well/ ct with no true air leak and minimal drainage ct showed no definite blebs heent ok chest symmetric bs cor rr abd soft extrem full pulses and rom Plan:dc suction and fu cxr/ hopefully tubes out in am 04/27/18 09:59 04/28/18 08:08 DOING WELL, GETTING BORED CHEST TUBE MINISCULE DRAINAGE, NO DEFINITE AIRLEAK/ CXR WELL EXPANDED/ NO BLEBS SEEN ON CT SCAN WILL WATCH TODAY ON SUCTION AND TRY AGAIN TOMORROW TO TAKE OFF SUCTION/ RISKS AND OPTIONS FULLLY DISCUSSED Objective: Vital Signs Temp Pulse Resp BP Pulse Ox 36.8 C 84 14 111/67 93 04/28/18 07:27 04/28/18 07:27 04/28/18 07:27 04/28/18 07:27 04/28/18 07:27 04/27/18 04/28/18 04/29/18 05:59 05:59 05:59 Intake Total 550 1000 Output Total 3 Balance 550 997 ICD10 Worksheet Patient Problems: Problems Problem Status Onset Spontaneous pneumothorax Acute Delivery normal Acute Labor established Acute
[2018-04-28] MEDS: lamoTRIgine 100 MG TAB PO SCH (08:16)
[2018-04-28] MEDS: LIDOCAINE 4%/MENTHOL 1% PATCH TD SCH (08:16)
[2018-04-28] MEDS: FLUoxetine 20 MG CAP PO SCH (08:16)
[2018-04-28] MEDS: FLUTICASONE/SALMETER 250/50MCG DISKUS IH SCH ×2 (09:32→22:14)
[2018-04-28] MEDS: OXYCODONE/APAP 5/325 TAB PO PRN ×2 (12:50→20:09)
[2018-04-28] MEDS: PATCH REMOVAL 1 EA PATCH TD SCH (20:09)
[2018-04-29] MEDS: IBUPROFEN 600 MG TAB PO PRN ×4 (04:05→22:24)
[2018-04-29] MEDS: LIDOCAINE 4%/MENTHOL 1% PATCH TD SCH (08:06)
[2018-04-29] MEDS: OXYCODONE/APAP 5/325 TAB PO PRN ×3 (08:06→18:51)
[2018-04-29] MEDS: FLUoxetine 20 MG CAP PO SCH (08:06)
[2018-04-29] MEDS: lamoTRIgine 100 MG TAB PO SCH (08:07)
[2018-04-29] MEDS: FLUTICASONE/SALMETER 250/50MCG DISKUS IH SCH ×2 (09:27→21:24)
--- NOTE | 2018-04-29 11:01 | SOAPPROG ---
SOAP Progress Note Assessment/Plan: Assessment: 32 yo with spontaneous pneumothorax small residual pneumo will try water seal again repeat cxr this afternoon S: Feeling well O: CTAB No air leak Plan: 04/29/18 11:00 Objective: Vital Signs Temp Pulse Resp BP Pulse Ox 36.8 C 62 14 103/69 91 L 04/29/18 07:57 04/29/18 07:57 04/29/18 07:57 04/29/18 07:57 04/29/18 07:57 04/28/18 04/29/18 04/30/18 05:59 05:59 05:59 Intake Total 1000 750 Output Total 3 0 Balance 997 750 Physical Exam - Physical Exam General Appearance: WD/WN, alert, no apparent distress EENT: PERRL/EOMI, No scleral icterus (R), No scleral icterus (L), No exophthalmia Cardiac/Chest: regular rate, rhythm Skin: normal color, warm/dry Extremities: normal range of motion Neuro/Psych: no motor/sensory deficits, normal mood/affect ICD10 Worksheet Patient Problems: Problems Problem Status Onset Spontaneous pneumothorax Acute Delivery normal Acute Labor established Acute
[2018-04-29] MEDS: PATCH REMOVAL 1 EA PATCH TD SCH (21:12)
[2018-04-30] MEDS: OXYCODONE/APAP 5/325 TAB PO PRN ×3 (02:17→17:44)
[2018-04-30] MEDS: FLUoxetine 20 MG CAP PO SCH (07:41)
[2018-04-30] MEDS: IBUPROFEN 600 MG TAB PO PRN ×3 (07:41→21:09)
[2018-04-30] MEDS: LIDOCAINE 4%/MENTHOL 1% PATCH TD SCH (07:41)
[2018-04-30] MEDS: lamoTRIgine 100 MG TAB PO SCH (07:41)
[2018-04-30] MEDS: FLUTICASONE/SALMETER 250/50MCG DISKUS IH SCH ×2 (08:16→21:51)
--- NOTE | 2018-04-30 08:48 | SOAPPROG ---
SOAP Progress Note Assessment/Plan: Assessment: 32 y/o F s/p R spontaneous tension pneumo, s/p Chest tube placement on 04/23 S: Feels well. Denies pain and SOB O: Alert Afebrile RRR No increased WOB, Chest is CTA bilaterally, no air leak Plan: R pneumo appears larger on xray this am, but will continue to keep chest tube on water seal. Repeat chest xray at 1200. Pending repeat xray, will either discharge pt home with heimlich valve or discuss VATS for pleurodesis. 04/30/18 08:44 Objective: Vital Signs Temp Pulse Resp BP Pulse Ox 36.5 C 68 16 121/86 H 97 04/30/18 00:00 04/30/18 08:20 04/30/18 00:00 04/30/18 00:00 04/30/18 08:20 04/29/18 04/30/18 05/01/18 05:59 05:59 05:59 Intake Total 750 1500 Output Total 0 0 Balance 750 1500 ICD10 Worksheet Patient Problems: Problems Problem Status Onset Spontaneous pneumothorax Acute Delivery normal Acute Labor established Acute
--- NOTE | 2018-04-30 15:38 | ASMTCMCOM ---
CM Note CM Note Notes: CM spoke to GALINA Valdez regarding d/c POC. Surgery is still pending. Surgery will continue to follow. Pt will most likely d/c independent without any needs. CM available for changes. Plan: Independent Date Signed: 04/30/2018 03:37 PM Electronically Signed By:TESSY Montalvo
[2018-04-30] MEDS: PATCH REMOVAL 1 EA PATCH TD SCH (21:10)
[2018-05-01] MEDS: OXYCODONE/APAP 5/325 TAB PO PRN (03:45)
[2018-05-01] MEDS: FLUoxetine 20 MG CAP PO SCH (08:13)
[2018-05-01] MEDS: IBUPROFEN 600 MG TAB PO PRN (08:13)
[2018-05-01] MEDS: LIDOCAINE 4%/MENTHOL 1% PATCH TD SCH (08:14)
[2018-05-01] MEDS: lamoTRIgine 100 MG TAB PO SCH (08:14)
[2018-05-01] MEDS: FLUTICASONE/SALMETER 250/50MCG DISKUS IH SCH (09:19)
[2018-05-01 12:13] VITALS: BP 105/75
--- NOTE | 2018-05-01 12:32 | SOAPPROG ---
SOAP Progress Note Assessment/Plan: Assessment/Plan: 32 [address] spontaneous [address]X. [address] on water seal x 2 d and CXR improved this am. No air leak. Will get Heimlich valve and likely d/c later today. No obvious blebs on CT. S: no SOB. no CP. O: alert, nad ctab rrr abd soft no air leak 05/01/18 12:30 Objective: Vital Signs Temp Pulse Resp BP Pulse Ox 36.9 C 62 16 105/75 92 05/01/18 12:00 05/01/18 12:00 05/01/18 12:00 05/01/18 12:00 05/01/18 12:00 04/30/18 05/01/18 05/02/18 05:59 05:59 05:59 Intake Total 1500 2000 Output Total 0 0 Balance 1500 1999 ICD10 Worksheet Patient Problems: Problems Problem Status Onset Spontaneous pneumothorax Acute Delivery normal Acute Labor established Acute
--- NOTE | 2018-05-07 11:29 | GDS ---
[f rep st] DISCHARGE SUMMARY DISCHARGE DIAGNOSIS: 1. Spontaneous pneumothorax. 2. Persistent air leak. OTHER DIAGNOSIS: Includes asthma. PROCEDURES: Right chest tube thoracostomy with Dr. Garcia. SPECIAL TESTS: CT scan of the chest showed some patchy alveolar infiltrates of the right lung, witho ut obvious evidence of blebs. Please see report for details. HOSPITAL COURSE: The patient is a 32-year-old female who presented to the emergency department with complaints of shortness of breath, which worsened over a period of about a week. She tried using her albuterol and Advair without alleviation. She was treated with steroids and also given prescription for codeine cough syrup. Her shortness of breath persisted and so she came to the emergency departm ent and was found to have a very significant right-sided pneumothorax. She was seen by Dr. Garcia, an d a chest tube was placed. Her lung fully expanded. The procedure was uncomplicated, and she tolera amisha it well. The patient's postoperative stay was complicated by a persistent air leak. She was placed to water s eal, and her lung would collapse. She was kept on suction for some time. Eventually, she did tolera te having her chest tube to water seal. Her Pleur-Evac box was changed out to a Heimlich valve, and she was discharged to home with plans for early followup the next day. A followup chest x-ray was pl anned as well. It was thought that she may require surgery if her air leak persisted. /[id number]/MODL
--- NOTE | 2018-05-08 20:37 | GOP ---
[f rep st] OPERATIVE REPORT DATE OF OPERATION: 04/23/2018 SURGEON: Nathaniel Garcia MD PREOPERATIVE DIAGNOSIS: 100% tension right pneumothorax. POSTOPERATIVE DIAGNOSIS: 100% tension right pneumothorax. PROCEDURE PERFORMED: Right tube thoracostomy with intravenous sedation. FINDINGS: The patient was found to have full re-expansion of the right lung with only a minimal air leak. DESCRIPTION OF PROCEDURE: The patient was in the emergency room. She was prepped and draped in the usual sterile fashion. She received IV sedation with fentanyl and Versed. A short incision was made in the 6th intercostal space in the midaxillary line. Dissection extended up over the rib, which wa s infiltrated with 1% xylocaine and 0.5% Marcaine. The intercostal space was then entered with obvio us release of air and re-expansion of the lung. A #24-Pashto chest tube was brought in through that site and placed in the apex of the chest, secured to the exit site with 2-0 silk suture, and connecte d to a Pleur-Evac drainage system. The wound was infiltrated with 0.5% Marcaine. Some 0.5% Marcaine was injected into the chest tube in the pleural space. The wounds were dressed. She tolerated the procedure well. There were no complications. /[id number]/MODL
--- NOTE | 2018-05-30 15:11 | GHP ---
[f rep st] PREOP HISTORY AND PHYSICAL DATE OF ADMISSION: 04/23/2018 HISTORY OF PRESENT ILLNESS: The patient is a 32-year-old female who was admitted at this time with 1 00% right pneumothorax with some tension component. She does have a history of asthma, but has been feeling short of breath with some chest discomfort and tightness for at least a couple of weeks. She has had more and more difficulty with exertion, and seen at this time in the ER with 100% pneumothor ax on the right. She has no history of prior pneumothoraces, and no history of trauma. Chest tube w as placed in the emergency room for re-expansion of her right lung, which has been successful. PAST MEDICAL HISTORY: Asthma. She has had childbirth. No other major surgeries. REVIEW OF SYSTEMS: Reveals no other major problems on a full 10-point review of systems, except as r elated to the HPI or the past history. SOCIAL HISTORY: Specifically she does not smoke. MEDICATIONS: Advair, albuterol, Prozac, Lamictal, Claritin. ALLERGIES: None. PHYSICAL EXAMINATION: GENERAL: Reveals an alert 32-year-old female in no acute distress. HEAD and NECK: Negative for any major findings. Specifically, PERRLA without adenopathy or oral lesions. Ne ck is supple nontender without thyromegaly. CHEST: Reveals decreased breath sounds on the right turner e. No palpable injuries or rib fractures. CARDIAC: Regular rhythm without murmurs. ABDOMEN: Soft and nontender, without organomegaly. EXTREMITIES: Benign; full range of motion, full pulses. NEUR OLOGIC: Physiologic and symmetric. PSYCH: Reveals her to be alert, oriented, and cooperative. IMPRESSION: 100% right pneumothorax, spontaneous, questionable tension. PLAN: Admit for chest tube management and observation. /[id number]/MODL
== END 2018-05-01 15:20 | disposition home or self-care (01) | DRG 201 ==
LOC: F3E 20:28
PROVIDERS: ADMIT Surgery; ATTEND Surgery
PROC: 0W9930Z Drainage of Right Pleural Cavity with Drainage Device, Percutaneous Approach (ICD-10-PCS; principal; 2018-04-23)
DX: J93.0 Spontaneous tension pneumothorax (principal); J45.909 Unspecified asthma, uncomplicated
CPT/HCPCS: 96374; J0690; J1885; J2060; J2250; J3010; Q9967